=== PATIENT | female | born 1940 | race Caucasian/White ===

== ENCOUNTER 2022-12-07 05:52 | Observation (INO) | payer MEDICARE ==
[2022-12-05 10:36] LABS: BASOPHILS # (AUTO) 0.1 X10'3 (0-0.2); BASOPHILS % (AUTO) 0.9 % (0-1); EOSINOPHILS # (AUTO) 0.2 X10'3 (0-0.9); EOSINOPHILS % (AUTO) 1.8 % (0-6); LYMPHOCYTES # (AUTO) 1.9 X10'3 (1.1-4.8); LYMPHOCYTES % (AUTO) 21.6 % (21-51); MEAN CORPUSCULAR HEMOGLOBIN 32.9 PG (27.0-31.0); MEAN CORPUSCULAR HGB CONC 34.3 g/dL (33.0-36.5); MEAN CORPUSCULAR VOLUME 95.9 FL (78-98); MEAN PLATELET VOLUME 9.3 FL (7.4-10.4); MONOCYTES # (AUTO) 0.6 X10'3 (0-0.9); MONOCYTES % (AUTO) 6.2 % (2-12); NEUTROPHILS # (AUTO) 6.2 X10'3 (1.8-7.7); NEUTROPHILS % (AUTO) 69.5 % (42-75); PRE OP HEMATOCRIT 41.8 % (35.0-45.0); PRE OP HEMOGLOBIN 14.3 g/dL (12.0-16.0); PRE OP PLATELET COUNT 227 X10'3 (140-440); RED BLOOD COUNT 4.36 X10'6 (4.20-5.60); RED CELL DISTRIBUTION WIDTH 14.3 % (11.5-14.5)
[2022-12-05 10:50] LABS: PRE OP PROTIME 10.6 SECONDS (9.0-12.0)
[2022-12-05 11:05] LABS: ALBUMIN 3.9 G/DL (3.4-5.0); ALBUMIN/GLOBULIN RATIO 1.1 (1.1-1.5); ALKALINE PHOSPHATASE 74 IU/L (46-116); BLOOD UREA NITROGEN 29 MG/DL (7-18); BUN/CREATININE RATIO 20.6 (6.6-38.0); CALCIUM 9.6 MG/DL (8.5-10.1); CHLORIDE 104 MMOL/L (99-107); CREATININE 1.41 MG/DL (0.40-0.90); PRE OP ALT 16 U/L (30-65); PRE OP ANION GAP 8 (8-16); PRE OP AST 17 U/L (10-37); PRE OP BILIRUB, TOTAL 1.4 MG/DL (0.0-1.0); PRE OP GLUCOSE 102 MG/DL (70-104); PRE OP POTASSIUM 4.4 MMOL/L (3.4-5.1); PRE OP SODIUM 141 MMOL/L (135-145); TOTAL CARBON DIOXIDE 29.1 MMOL/L (24-32); TOTAL PROTEIN 7.5 G/DL (6.4-8.2); eGFR 36 ML/MIN
[~2022-12-07] VITALS: Ht 157.5 cm; Wt 62.0 kg
[2022-12-07] VITALS (19 sets, daily range): BP systolic 132–186; BP diastolic 44–67
[2022-12-07] MEDS: normal saline 1000ml 500 ML IV SCH (05:30)
[~2022-12-07 05:52] MED LIST: AMLO5TAB16 PO; DOCUMENT DATE & TIME OF BETA-BLOCKER PO ONE; LEVO100T9 PO; METO50TA16 PO; OMEP20CA16 PO; ceFAZolin inj. 2,000 MG in dextrose 5%-water 100 ML IV ONE; famotidine 20mg tablet PO ONE
[2022-12-07] MEDS ORDERED: BUPIVAcaine 0.25% w/Epi /PF 30ml vial ONE (06:44)
[2022-12-07] MEDS ORDERED: methylene blue (5mg/ml) 50mg/10ml ampul IV ONE (06:46)
[2022-12-07] MEDS ORDERED: BUPIVACAINE liposomal/PF 13.3 MG/ML vial IM ONE ×2 (06:46→09:08)
[2022-12-07] MEDS ORDERED: ringers solution, lacted 1,000 ML IV SCH (07:20)
[2022-12-07] MEDS ORDERED: labetalol 20mg/4ml (5mg/ml) syringe IV PRN (07:20)
[2022-12-07] MEDS ORDERED: HYDROmorphone/PF 0.2 MG/ML SYRINGE IV PRN ×2 (07:20)
[2022-12-07] MEDS ORDERED: ondansetron/PF 4mg/2ml inj IV PRN ×2 (07:20→10:20)
[2022-12-07] MEDS ORDERED: proCHLORperazine 10 MG/2 ml inj IV PRN (07:20)
[2022-12-07] MEDS ORDERED: morphine 4 MG/ML inj SYRINge IV PRN (07:20)
[2022-12-07] MEDS ORDERED: hydrALAZINE 20mg/ml inj. IV PRN (07:20)
[2022-12-07] MEDS ORDERED: acetaminophen 1,000mg/100ml IV 100 ML IV PRN (07:20)
[2022-12-07] MEDS ORDERED: morphine 2 MG/ML inj. syringe IV PRN ×2 (07:20→10:20)
[2022-12-07] MEDS ORDERED: sevoflurane 250ml liquid IH ONE (07:26)
[2022-12-07] MEDS ORDERED: midazolam 1 mg/ML 2ml injection ONE (07:27)
[2022-12-07] MEDS ORDERED: fentaNYL/PF 50MCG/1 ML 2ML syringe ONE (07:27)
[2022-12-07] MEDS ORDERED: ROPIVAcaine 0.5% (5mg/ml) 30ml vial ONE (08:17)
[2022-12-07] MEDS ORDERED: propofol inj 20 ML IV ONE (08:17)
[2022-12-07] MEDS ORDERED: LIDOcaine 1%/PF 5ML 10 MG/ML VIAL ONE (08:18)
[2022-12-07] MEDS ORDERED: dexamethasone sod phosphate 4mg/ml inj. ONE (08:19)
[2022-12-07] MEDS ORDERED: ondansetron/PF 4mg/2ml inj ONE (08:19)
[2022-12-07] MEDS ORDERED: fentaNYL /PF 50mcg/ml 5ml ampule ONE (08:33)
[2022-12-07] MEDS ORDERED: BUPIVAcaine 0.5% inj/PF 30 ML ONE (08:58)
[2022-12-07] MEDS ORDERED: BUPIVAcaine 0.5% inj/PF 30 ml vial IJ ONE (09:08)
--- NOTE | 2022-12-07 10:00 | NUR ---
Received from OR via [facility] IN STABLE CONDITION, accompanied by Anesthesiologist and ACCOUNTANCY PROFESSOR report given by Anesthesiradha AND ACCOUNTANCY PROFESSOR. Addendum: 12/07/22 at 1016 by Julita Mann RN Amended: Links added.
[2022-12-07] MEDS ORDERED: acetaminophen w/codeine (30MG) #3 tablet PO PRN ×2 (10:20)
[2022-12-07] MEDS ORDERED: bisacodyl 10mg suppository rectal RC PRN (10:20)
--- NOTE | 2022-12-07 10:20 | NUR ---
ORAL AIRWAY REMOVED. Addendum: 12/07/22 at 1037 by Julita Mann RN Amended: Links added.
--- NOTE | 2022-12-07 11:10 | NUR ---
PATIENT DISCHARGED FROM PACU IN STABLE CONDITION AFTER REPORT GIVEN TO RN TAKING OVER PATIENTS CARE. PATIENT TRANSFERRED TO ROOM 359B VIA [facility] WITH RN. Addendum: 12/07/22 at 1122 by Julita Mann RN Amended: Links added.
--- NOTE | 2022-12-07 11:15 | NUR ---
Pt transferred from Recovery Room to 359 via gurney to bed. Pt denied any pain or discomfort. Oriented pt to surroundings and instructed pt to use call light for assistance. Call light within reach. Wick placed for incontinence.
[2022-12-07] MEDS ORDERED: amLODIPine 5mg tablet PO STA (12:30)
[2022-12-07] MEDS: ringers solution, lacted 1,000 ML IV SCH ×2 (16:04→18:20)
[2022-12-07] MEDS: ceFAZolin 1GM/D5W- ADD-VANTAGE 50 ML IV SCH (16:04)
--- NOTE | 2022-12-07 17:56 | NUR ---
Pt up OOB with assist and ambulated to bathroom and incontinent large amount of urine on the way to bathroom. Peripad and mesh panties provided.
--- NOTE | 2022-12-07 18:28 | NUR ---
Patient in room [facility]. I have received report from JONNY MILES and had the opportunity to ask questions and assume patient care.
[2022-12-07] MEDS: metoprolol tartrate 50mg tablet PO SCH (21:17)
[2022-12-08] MEDS: ceFAZolin 1GM/D5W- ADD-VANTAGE 50 ML IV SCH ×2 (00:15→08:27)
[2022-12-08 02:00] VITALS: BP 133/44
[2022-12-08] MEDS: ringers solution, lacted 1,000 ML IV SCH (02:20)
[2022-12-08 05:30] VITALS: BP 138/48
[2022-12-08] MEDS: normal saline 1000ml 500 ML IV SCH (06:30)
--- NOTE | 2022-12-08 06:33 | NUR ---
Problems reprioritized. Patient report given, questions answered & plan of care reviewed with JE RN.
--- NOTE | 2022-12-08 06:40 | NUR ---
Patient in room [facility]. I have received report from JD Zelaya and had the opportunity to ask questions and assume patient care.
[2022-12-08] MEDS ORDERED: levoTHYROXINE 100mcg tablet PO SCH (07:00)
[2022-12-08] MEDS ORDERED: amLODIPine 5mg tablet PO SCH (08:00)
[2022-12-08] MEDS ORDERED: pantoprazole 40mg Tablet.DR PO SCH (08:00)
[2022-12-08] MEDS: metoprolol tartrate 50mg tablet PO SCH (08:18)
[2022-12-08 08:36] LABS: BASOPHILS % (AUTO) 0.1 % (0-1); EOSINOPHILS % (AUTO) 0 % (0-6); HEMATOCRIT 35.5 % (35.0-45.0); HEMOGLOBIN 11.8 g/dl (12.0-16.0); LYMPHOCYTES # (AUTO) 0.9 X10'3 (1.1-4.8); LYMPHOCYTES % (AUTO) 7.3 % (21-51); MEAN CORPUSCULAR HEMOGLOBIN 32.3 PG (27.0-31.0); MEAN CORPUSCULAR HGB CONC 33.2 g/dL (33.0-36.5); MEAN CORPUSCULAR VOLUME 97.4 FL (78-98); MEAN PLATELET VOLUME 9.7 FL (7.4-10.4); MONOCYTES # (AUTO) 0.7 X10'3 (0-0.9); MONOCYTES % (AUTO) 6.3 % (2-12); NEUTROPHILS # (AUTO) 10.2 X10'3 (1.8-7.7); NEUTROPHILS % (AUTO) 86.3 % (42-75); PLATELET COUNT 164 X10'3 (140-440); RED BLOOD COUNT 3.64 X10'6 (4.20-5.60); RED CELL DISTRIBUTION WIDTH 14.4 % (11.5-14.5); WHITE BLOOD COUNT 11.8 X10'3 (4.5-11.0)
[2022-12-08 08:57] LABS: ALANINE AMINOTRANSFERASE 11 U/L (12-78); ALBUMIN 3.1 G/DL (3.4-5.0); ALBUMIN/GLOBULIN RATIO 0.9 (1.1-1.5); ALKALINE PHOSPHATASE 60 IU/L (46-116); ANION GAP 7 (8-16); ASPARTATE AMINO TRANSFERASE 21 U/L (10-37); BILIRUBIN,TOTAL 0.7 MG/DL (0.1-1.0); BLOOD UREA NITROGEN 33 MG/DL (7-18); BUN/CREATININE RATIO 21.6 (6.6-38.0); CALCIUM 8.6 MG/DL (8.5-10.1); CHLORIDE 106 MMOL/L (99-107); CREATININE 1.53 MG/DL (0.40-0.90); GLUCOSE 125 MG/DL (70-104); POTASSIUM 4.3 MMOL/L (3.5-5.1); SODIUM 140 MMOL/L (135-145); TOTAL CARBON DIOXIDE 26.9 MMOL/L (24-32); TOTAL PROTEIN 6.4 G/DL (6.4-8.2); eGFR 33 ML/MIN
[2022-12-08 10:00] VITALS: BP 142/43
--- NOTE | 2022-12-08 14:55 | NUR ---
DC inst provided to pt & pt's daughter. IV DC'd, tip intact. All belongings sent w/pt. WC to vehicle.
== END 2022-12-08 14:55 | disposition home or self-care (01) ==
LOC: PAS 05:52 → SUR 3N 10:28
PROVIDERS: ADMIT Surgery; ATTEND Surgery
DX: C50.911 Malignant neoplasm of unspecified site of right female breast (principal); I10 Essential (primary) hypertension; K21.9 Gastro-esophageal reflux disease without esophagitis; E03.9 Hypothyroidism, unspecified; M19.90 Unspecified osteoarthritis, unspecified site; Z79.899 Other long term (current) drug therapy; Z17.0 Estrogen receptor positive status [ER+]; Z87.891 Personal history of nicotine dependence; Z90.710 Acquired absence of both cervix and uterus
CPT/HCPCS: 19303; 36415; 38500; 80053; 82948; 84443; 85025; 85610; 85730; 87081; 93005; 96365; 96366; C9290; G0378; J0690; J1100; J2250; J2405; J2704; J2795; J3010; J3490; J7030; J7060; J7120; Q9968; S0020; A4215; A4615; A4618; A6253; A6258; A6449; A7000